=== PATIENT | male | born 1975 | race Caucasian/White ===

== ENCOUNTER 2018-07-26 13:25 | Emergency (ER) | payer SELFPAY ==
[2018-07-26 13:36] VITALS: O2SAT 98
[2018-07-26] MEDS ORDERED: TORAdol 30 mg Injection IM ONE (13:43)
--- NOTE | 2018-07-26 13:47 | ERPHSYRPT ---
- History of Present Illness Time Seen by Provider: 07/26/18 13:37 Source: patient Exam Limitations: no limitations Patient Subjective Stated Complaint: Pt states "I have had this for awhile now and it is just getting to painful. About a year ago I fell through a roof and hurt my right knee. Now it is to the point where I limp all the time." "I went to my primary care dr in [place] and he said that it is a cartilage problem and I need surgery but the pain comes and goes." Triage Nursing Assessment: Pt alert and oriented X 3, skin pwd Pt ambulates with an upright limping gait. Pt in no apparent respiratory distress. PT sitting calmly on the cot. Physician History: This is a 43-year-old white male arrives with complaint of pain to his right knee symptoms off and on for 1-1/2 years however he states has been going on for the past 3 days she states she stepped out of a hole at work he is having pain sometimes at night hurts when he bends his knee then straightens it. Patient states he has seen his family doctor in the past for the same problem he was told that he needed to have knee surgery. Past medical history is negative past surgical history is negative. Social history denies tobacco alcohol or illicit drug use. Method of Injury: other (stepped out of a hole at work) Occurred: days ago (3 days ago) Severity of Pain-Max: moderate Severity of Pain-Current: moderate Lower Extremities Pain: knee: right Modifying Factors: Improves With: movement (walking) Associated Symptoms: other (pain with walking) Allergies/Adverse Reactions: No Known Drug Allergies Allergy (Unverified 07/26/18 13:35) Hx Tetanus, Diphtheria Vaccination/Date Given: No Hx Influenza Vaccination/Date Given: No Hx Pneumococcal Vaccination/Date Given: No Immunizations Up to Date: Yes - Review of Systems Constitutional: No Fever, No Chills Eyes: No Symptoms Ears, Nose, & Throat: No Symptoms Respiratory: No Cough, No Dyspnea Cardiac: No Chest Pain, No Edema, No Syncope Abdominal/Gastrointestinal: No Abdominal Pain, No Nausea, No Vomiting, No Diarrhea Genitourinary Symptoms: No Dysuria Musculoskeletal: Joint Pain (right knee pain) Skin: No Rash Neurological: No Dizziness, No Focal Weakness, No Sensory Changes Psychological: No Symptoms Endocrine: No Symptoms All Other Systems: Reviewed and Negative - Past Medical History Pertinent Past Medical History: No - Past Surgical History Past Surgical History: No - Social History Smoking Status: Never smoker Exposure to second hand smoke: Yes Drug Use: none Patient Lives Alone: No - Nursing Vital Signs Nursing Vital Signs: Initial Vital Signs Temperature 98.2 F 07/26/18 13:30 Pulse Rate 62 07/26/18 13:30 Respiratory Rate 18 07/26/18 13:30 Blood Pressure 137/87 07/26/18 13:30 O2 Sat by Pulse Oximetry 98 07/26/18 13:30 Pain Scale Pain Intensity 10 - Physical Exam General Appearance: mild distress, alert Eyes, Ears, Nose, Throat Exam: moist mucous membranes Neck Exam: non-tender, supple Cardiovascular/Respiratory Exam: chest non-tender, normal breath sounds, regular rate/rhythm, no respiratory distress Gastrointestinal/Abdominal Exam: non-tender, guarding Back Exam: normal inspection, No vertebral tenderness Hips Exam: bilateral: non-tender, normal inspection, normal range of motion, no evidence of injury Legs Exam: bilateral leg: non-tender, normal inspection, normal range of motion , no evidence of injury Knees Exam: right knee: bone tenderness (left knee tender with palpation anteriorly), left knee: non-tender, normal inspection, no evidence of injury, bilateral knee: normal range of motion Ankle Exam: bilateral ankle: non-tender, normal inspection, normal range of motion, no evidence of injury Foot Exam: bilateral foot: non-tender, normal inspection, normal range of motion , no evidence of injury DTR - Lower Extremities Exam: ankle (R): 2+, ankle (L): 2+ Neuro/Tendon Exam: normal sensation, normal motor functions Mental Status Exam: alert, oriented x 3, cooperative Skin Exam: normal color, warm, dry SpO2 Interpretation: normal (98%) SpO2: 98 - Course Nursing assessment & vital signs reviewed: Yes - Radiology Exams Right Knee X-ray Interpretation: Discussed w/ radiologist (x-ray right knee impression minimal medial joint space narrowing, small patellar spurring, and small posterior Fabella. No other bony articular or soft tissue abnormalities) Ordered Tests: Active Orders 24 hr Category Date Time Status KNEE (3 VIEWS) Stat Exams 07/26/18 13:42 Completed Medication Summary Discontinued Medications Generic Name Dose Route Start Last Admin Trade Name Freq PRN Reason Stop Dose Admin Ketorolac Tromethamine 60 mg 07/26/18 13:43 07/26/18 13:53 Toradol 30 Mg Injection IM 07/26/18 13:44 60 mg STAT ONE Administration Ketorolac Tromethamine Confirm 07/26/18 13:49 Toradol 30 Mg Injection Administered 07/26/18 13:50 Dose 60 mg .ROUTE .STK-MED ONE - Progress Progress: improved Progress Note: 07/26/18 14:23 43-year-old white male with history of right knee pain off and on for 1-1/2 years after injuring it on a roof. Complains of pain in his right knee anteriorly and posteriorly worse with straightening symptoms for 3 days he states he stepped out of a hole at work and experienced this pain. He states he has had this pain before he apparently was unable to tolerate an immobilizer. X-ray of the patient's right knee is remarkable for minimal medial joint space narrowing, small patellar spurring, and small posterior Fabella. There are no other bony, articular, or soft tissue abnormalities. Patient's right knee is rechecked there is mild edema anteriorly some tenderness overlying the patella. There appears to be full range of motion to the right knee over the patient states she has pain with straightening the right knee. Knee is stable to anterior drawer posterior drawer LCL stress MCL stress. Impression right knee strain. Plan we'll go ahead and apply Sivakumar wrap to the right knee. Will give patient crutches weightbearing as tolerated. Will place patient on Naprosyn. Cold packs to the right knee 24-48 hours. Patient to follow-up with his company physician. - Departure Departure Disposition: Home Clinical Impression: Right knee pain Qualifiers: Chronicity: acute Qualified Code(s): M25.561 - Pain in right knee Strain of right knee Qualifiers: Encounter type: initial encounter Qualified Code(s): S86.911A - Strain of unspecified muscle(s) and tendon(s) at lower leg level, right leg, initial encounter Condition: Fair Critical Care Time: No Instructions: Knee Sprain (DC), Knee Pain (DC) Additional Instructions: Return home. Ice and elevate your right knee 24-48 hours. Crutches weightbearing as tolerated. Naprosyn 500 mg orally twice a day as needed for pain. Follow-up with your company physician. Return for acute distress or for severe symptoms. Prescriptions: Naproxen 500 mg [Naprosyn 500 MG] 500 mg PO BIDPRN PRN #10 tablet PRN Reason: knee pain
[2018-07-26] MEDS ORDERED: TORAdol 30 mg Injection ONE (13:49)
--- NOTE | 2018-07-26 14:15 | XRAY ---
Indication: Right knee pain. No known injury. Comparison: None 3 views of the right knee demonstrates minimal medial joint space narrowing, small patellar spurring, and small posterior fabella. No other bony, articular, or soft tissue abnormalities.
[2018-07-26 14:38] VITALS: BP 133/96; PULSE 63
== END 2018-07-26 14:56 | disposition home or self-care (01) ==
LOC: ED 13:25
DX: M25.561 Pain in right knee (principal); S86.911A Strain of unspecified muscle(s) and tendon(s) at lower leg level, right leg, initial encounter
CPT/HCPCS: 73562; 96372; 99284; J1885

== ENCOUNTER 2024-09-06 18:34 | Emergency (ER) | payer MEDICAID ==
[2024-09-06 20:09] VITALS: RESP 20; TEMP 96.4
--- NOTE | 2024-09-06 20:50 | ERPHSYRPT ---
- History of Present Illness Time Seen by Provider: 09/06/24 20:50 Source: patient, family Exam Limitations: no limitations Patient Subjective Stated Complaint: pt states that he has been having pain to his right knee for the past 6-7 years. pt states that sunday night his rt knee began to hurt and has not stopped. pt states pain is worse with rest Triage Nursing Assessment: pt ambulated into the er; pt is axo x4; c/o rt knee pain; pt states 8/10 pain to rt knee; brace on at time of assessment; no bruising, swelling, or deformity present to rt knee; strong rt pedal pulse; limited ROM to RLE; pain worse at rest; skin PDW; no respiratory distress present; hypertensive Physician History: This is a 49-year-old white male patient who presents to the emergency department with complaint of right knee pain without traumatic injury that been present for 6 to 7 years. In the last few days the pain has gotten much worse. He has been unable to sleep. He states that he is here to figure out what is going on. Patient has not seen a primary care provider or orthopedic surgeon for his pain over the last 6 to 7 years. He does not have a primary care provider. He has never had any radiographic studies of this right knee. The pain is in the anterior aspect at and just proximal to the patella on the right side Method of Injury: other (No injury) Quality: aching, throbbing Severity of Pain-Max: moderate Severity of Pain-Current: moderate Lower Extremities Pain: knee: right, thigh: right Modifying Factors: Improves With: movement Associated Symptoms: other (Hurts to bear weight but also hurts without any activity) Allergies/Adverse Reactions: No Known Drug Allergies Allergy (Verified 09/06/24 20:06) Hx Tetanus, Diphtheria Vaccination/Date Given: No Hx Influenza Vaccination/Date Given: No Hx Pneumococcal Vaccination/Date Given: No Immunizations Up to Date: No Travel Risk - International Travel Have you traveled outside of the country in past 3 weeks: No - Emerging Infectious Disease Are you exhibiting symptoms associated with any current EIDs: No - Review of Systems Constitutional: No Symptoms Eyes: No Symptoms Ears, Nose, & Throat: No Symptoms Respiratory: No Symptoms Cardiac: No Symptoms Abdominal/Gastrointestinal: No Symptoms Genitourinary Symptoms: No Symptoms Musculoskeletal: Joint Pain (Right anterior knee pain) Skin: No Symptoms Neurological: No Symptoms Psychological: No Symptoms Endocrine: No Symptoms Hematologic/Lymphatic: No Symptoms Immunological/Allergic: No Symptoms All Other Systems: Reviewed and Negative - Past Medical History Pertinent Past Medical History: No - Past Surgical History Past Surgical History: No - Social History Smoking Status: Never smoker Exposure to second hand smoke: No Drug Use: none - Social Determinants of Health Will the patient participate in the screening: Yes Do you worry about a steady place to live?: No Do you have any problems with any of the following?: No known problems In the past 12 months,have you had to go without utilities?: No Transportation Issues: No Has anyone in your support network made you feel unsafe?: No Have you or anyone in your house had to go w/o enough food: No - Nursing Vital Signs Nursing Vital Signs: Initial Vital Signs Temperature 96.4 F 09/06/24 20:07 Pulse Rate 62 09/06/24 20:07 Respiratory Rate 20 09/06/24 20:07 Blood Pressure 160/96 09/06/24 20:07 O2 Sat by Pulse Oximetry 98 09/06/24 20:07 Pain Scale Pain Intensity 8 - Physical Exam General Appearance: no apparent distress, alert Eyes, Ears, Nose, Throat Exam: normal ENT inspection, moist mucous membranes Neck Exam: normal inspection, non-tender, supple, full range of motion Cardiovascular/Respiratory Exam: chest non-tender, no respiratory distress Gastrointestinal/Abdominal Exam: non-tender Back Exam: normal inspection, normal range of motion, No CVA tenderness, No vertebral tenderness Hips Exam: bilateral: non-tender, normal inspection, normal range of motion, no evidence of injury Legs Exam: bilateral leg: non-tender, normal inspection, normal range of motion, no evidence of injury Knees Exam: right knee: non-tender, left knee: bone tenderness, soft tissue tenderness (Anteriorly proximal to and at patella), bilateral knee: normal inspection, normal range of motion, no evidence of injury Ankle Exam: bilateral ankle: non-tender, normal inspection, normal range of motion, abrasions/laceration Foot Exam: bilateral foot: non-tender, normal inspection, normal range of motion, no evidence of injury Neuro/Tendon Exam: normal sensation, normal motor functions, normal tendon functions, responds to pain, no evidence tendon injury Mental Status Exam: alert, oriented x 3, cooperative Skin Exam: normal color, warm, dry SpO2 Interpretation: normal SpO2: 98 O2 Delivery: Room Air - Course Nursing assessment & vital signs reviewed: Yes Ordered Tests: Medication Summary Discontinued Medications Generic Name Dose Route Start Last Admin Trade Name oRmel PRN Reason Stop Dose Admin Methylprednisolone Sodium 0 mg 09/06/24 21:28 09/06/24 21:34 Succinate 125 mg/ Sterile IM 09/06/24 21:29 125 mg Water 2 ml STAT ONE Administration Hydromorphone HCl 0.5 mg 09/06/24 21:28 09/06/24 21:35 Hydromorphone 1 Mg/1ml Inj IM 09/06/24 21:29 0.5 mg STAT ONE Administration Hydromorphone HCl Confirm 09/06/24 21:33 Hydromorphone 1 Mg/1ml Inj Administered 09/06/24 21:34 Dose 1 mg .ROUTE .STK-MED ONE Methylprednisolone Sodium Succinate Confirm 09/06/24 21:33 Methylprednis Sod Succ 125 Mg/2 Ml Vial Administered 09/06/24 21:34 Dose 125 mg .ROUTE .STK-MED ONE Ondansetron HCl 4 mg 09/06/24 21:28 09/06/24 21:35 Zofran 4 Mg/Udtablet Orally Disintegrating PO 09/06/24 21:29 4 mg STAT ONE Administration Ondansetron HCl Confirm 09/06/24 21:32 Zofran 4 Mg/Udtablet Orally Disintegrating Administered 09/06/24 21:33 Dose 4 mg .ROUTE .STK-MED ONE Orphenadrine Citrate 60 mg 09/06/24 21:28 09/06/24 21:35 Orphenadrine Citrate 60 Mg/2 Ml Vial IM 09/06/24 21:29 60 mg STAT ONE Administration Orphenadrine Citrate Confirm 09/06/24 21:32 Orphenadrine Citrate 60 Mg/2 Ml Vial Administered 09/06/24 21:33 Dose 60 mg .ROUTE .STK-MED ONE Sterile Water Confirm 09/06/24 21:31 Water For Injection,Sterile 10 Ml Vial Administered 09/06/24 21:32 Dose 10 ml IJ .STK-MED ONE - Progress Progress: improved, pain not gone completely, re-examined Progress Note: 09/06/24 21:57 My medical decision making and the assignment of low complexity to this patient's medical issue today is based on review of the patient's past medical history, review the patient's medication list, review the patient drug allergy list, history present illness and physical findings on examination. The workup in this patient does not necessitate radiographic or laboratory studies. The patient's pain is chronic. The patient did not suffer any fall or acute trauma to the area. We had a long discussion regarding testing in the emergency department versus outpatient testing in chronic, nonacute conditions. Together, we opted not to perform any radiographic studies, provided him pain relief here in the emergency room and for couple days outside the emergency department and provided him with a list of accepting physicians that he can see the next week Counseled pt/family regarding: diagnosis, need for follow-up Medical Desision Making - Independent Historian Additional History obtained from: Spouse - Diagnostic Testing Diagnostic test were ordered, analyzed, and reviewed by me: No - Risk of complications The pt has a mod risk of morbidity or mortality based on: Need for prescription drug management - Departure Departure Disposition: Home Clinical Impression: Chronic pain of right knee Condition: Stable Critical Care Time: No Referrals: DOCTOR,NO FAMILY [Primary Care Provider, UNKNOWN] - Follow up/PCP as directed Additional Instructions: Ice pack to right knee 3 times a day for the next 72 hours. Take your medication as prescribed. Use the list of providers names/phone numbers who are accepting patients and call them on 09/08/2024 to make arrangements for follow-up appointment for further evaluation and management. Your other option is to follow-up at the [facility] orthopedic clinic. It is Sunday through Sunday 8 AM to 10 AM. You do not need an appointment. Prescriptions: Oxycodone HCl/Acetaminophen [Percocet 5-325 mg Tablet] 1 each PO Q8H PRN PRN #6 tablet MDD 3 PRN Reason: Moderate To Severe Pain Prednisone 10 mg [Deltasone 10 mg] 10 mg PO TID #12 tablet
[2024-09-06] MEDS ORDERED: Sterile H2O 10 ml IJ ONE (21:31)
[2024-09-06] MEDS ORDERED: Norflex 60 MG/2 ML ONE (21:32)
[2024-09-06] MEDS ORDERED: ZOFRAN ODT 4 MG ONE (21:32)
[2024-09-06] MEDS ORDERED: solu-MEDROL ONE (21:33)
[2024-09-06] MEDS ORDERED: Hydromorphone 1 mg/ml Injection ONE (21:33)
[2024-09-06] MEDS: solu-MEDROL 125 MG, Sterile H2O 10 ml 2 ML IM ONE (21:34)
[2024-09-06] MEDS: Hydromorphone 1 mg/ml Injection IM ONE (21:35)
[2024-09-06] MEDS: ZOFRAN ODT 4 MG PO ONE (21:35)
[2024-09-06] MEDS: Norflex 60 MG/2 ML IM ONE (21:35)
[2024-09-06 22:09] VITALS: PULSE 52
[2024-09-06 22:17] VITALS: BP 142/94; O2SAT 96
== END 2024-09-06 22:17 | disposition home or self-care (01) ==
LOC: ED 18:34
DX: G89.29 Other chronic pain (principal); M25.561 Pain in right knee; Z79.891 Long term (current) use of opiate analgesic; Z79.52 Long term (current) use of systemic steroids
CPT/HCPCS: 96372; 99283; 99284; J1171; J2360; J2919; Q0162